=== PATIENT | male | born 1995 | race Caucasian/White ===

== ENCOUNTER 2024-03-25 14:51 | Emergency (ER) | payer SELFPAY ==
[2024-03-25] MEDS: Acetaminophen 500 MG Tab PO ONE (15:37)
== END 2024-03-25 18:18 | disposition left against medical advice (07) ==
LOC: MW.ED 14:51
DX: S06.9X9A Unspecified intracranial injury with loss of consciousness of unspecified duration, initial encounter (principal); Z53.29 Procedure and treatment not carried out because of patient's decision for other reasons; Z75.8 Other problems related to medical facilities and other health care; W00.0XXA Fall on same level due to ice and snow, initial encounter; Y99.0 Civilian activity done for income or pay
CPT/HCPCS: 70450; 72125; 99284; A9270